=== PATIENT | male | born 1995 | race Two or more races ===

== ENCOUNTER 2022-05-19 23:19 | Emergency (ER) | payer OTHER ==
[~2022-05-19] VITALS: Ht 182.9 cm; Wt 77.6 kg
== END 2022-05-20 01:54 | disposition home or self-care (01) ==
LOC: ER 23:19
DX: R00.2 Palpitations (principal)

== ENCOUNTER 2023-04-16 23:44 | Emergency (ER) | payer OTHER ==
[~2023-04-16] VITALS: Ht 182.9 cm; Wt 81.6 kg
== END 2023-04-17 03:00 | disposition home or self-care (01) ==
LOC: ER 23:45
DX: G24.3 Spasmodic torticollis (principal)